=== PATIENT | male | born 1995 | race Hispanic/Latino ===

== ENCOUNTER 2018-02-25 10:26 | Emergency (ER) | payer SELFPAY ==
[2018-02-25 10:44] VITALS: BP 170/106; PULSE 90; RESP 15; TEMP 36.6; O2SAT 100
--- NOTE | 2018-02-25 10:50 | ED.WOUNDLAC ---
HPI - Wound/Laceration General Chief Complaint: Wound/Laceration Stated Complaint: Hand/Finger Lacerations Time Seen by Provider: 02/25/18 10:29 Source: patient Mode of arrival: ambulatory Limitations: no limitations History of Present Illness HPI narrative: 22-year-old male here for evaluation of cuts on his bilateral hands. Patient does not know his last tetanus shot. He states that he was on a ladder with a trimmer sawyer and fell off the ladder when he reached for the head tremor and cut his hands. States he did wash them out prior to arrival. Related Data Previous Rx's Medication Instructions Recorded cephalexin [Keflex] 500 mg PO BID 10 Days #20 cap 02/25/18 Allergies Allergy/AdvReac Type Severity Reaction Status Date / Time No Known Drug Allergies Allergy Verified 02/25/18 12:45 Review of Systems Constitutional Denies fever(s) Cardiovascular Denies chest pain and Denies dyspnea Respiratory Denies dyspnea Gastrointestinal Gastrointestinal: Denies abdominal pain, Denies nausea and Denies vomiting Musculoskeletal Comments: Cuts to both his hands otherwise no other musculoskeletal complaints Integumentary/Breasts Comments: Cuts to both of his hands Neurologic Comments: No numbness and tingling bilateral upper extremities Exam Initial Vital Signs Initial Vital Signs: Vital Signs Temperature 97.8 F 02/25/18 10:44 Pulse Rate 90 02/25/18 10:44 Respiratory Rate 15 02/25/18 10:44 Blood Pressure 170/106 H 02/25/18 10:44 Pulse Oximetry 100 02/25/18 10:44 Const General: cooperative, healthy appearing, comfortable, well developed, well groomed and No acute distress Orientation: alert, awake and oriented x3 HENMT Head: normal to inspection, normocephalic and atraumatic Cardio Pulses: radial pulses present bilaterally Skin Other: Patient with a 4 cm curvilinear laceration to the dorsum of his right hand in between the ring and little finger. No active bleeding. Patient with a 3 cm laceration to the dorsum of his left thumb in between the IP joint the MCP joint Neuro Other: Sensation intact to light touch bilateral upper extremities Extrem Other: Patient with lacerations of the hands as described in the skin section. Is able to flex and extend at all joints of bilateral hands without problems. Procedures Laceration Repair Laceration 1: Site: hand (Right) Side (If applicable): right Size (cm): 4 Description: flap and other (curved) Depth: simple, single layer Local Anesthetic: lidocaine 1% Amount of anesthesia used (mL): 5 Pre-repair: wound explored, irrigated extensively and deep structures intact Skin layer closed with: nylon Size (cm): 4-0 Number of sutures: 10 Technique: simple, interrupted Laceration 2: Site: hand Side (If applicable): left Size (cm): 3 Description: linear, flap and other (curved) Depth: simple, single layer Local Anesthetic: lidocaine 1% Amount of anesthesia used (mL): 5 Skin layer closed with: nylon Size (cm): 5-0 Number of sutures: 7 Technique: simple, interrupted Course Orders Ordered: Discontinued Medications Diphtheria/Tetanus/Acell Pertussis (Adacel) 0.5 ml IM .ONCE ONE Stop: 02/25/18 10:52 Last Admin: 02/25/18 11:16 Dose: 0.5 ml Vital Signs - 8 hr 02/25/18 10:44 02/25/18 11:21 Temperature 97.8 F Pulse Rate 90 79 Respiratory Rate 15 20 Blood Pressure 170/106 H Blood Pressure [Right Arm] 135/64 H Pulse Oximetry 100 100 MDM - Wound/Laceration MDM Narrative Medical decision making narrative: Patient's tetanus was updated. Wounds were closed as described above. Deep structures were involved on my exam today. Will send the patient home on antibiotics given the fact that this was on his hands and the fact that it was a trimmer sawyer. Patient was instructed on care. He was given follow-up instructions he was given return precautions. He expressed understanding and agreement with plan Discharge Plan Departure Patient Disposition: Home, Self-Care Clinical Impression: Laceration Instructions: DI for Laceration Repair, DI for Laceration Repair -- Finger Activity Restrictions/Additional Instructions: Recommend that you take all of your medications as instructed. The stitches do need to be removed in approximately 7-10 days. You can wash your hands like normal however do not soak your hands and anything until the wounds are healed. There will be scars despite our interventions today. Likely discussed there is a chance that the skin flaps may not survive this incident. Return to the emergency department for any new or worsening symptoms Prescriptions: New cephalexin [Keflex] 500 mg capsule 500 mg PO BID 10 Days Qty: 20 RF: 0
[2018-02-25] MEDS: TET,DIPH,PERTUSS(ACELL),VAC/PF 0.5 ML SYRINGE IM (11:16)
[2018-02-25 11:21] VITALS: BP 135/64; PULSE 79; RESP 20; O2SAT 100
[2018-02-25] MEDS: HYDROCODONE/ACET 5/325 TABLET 1 TAB PO (13:08)
[2018-02-25 13:25] VITALS: BP 141/91; PULSE 90; RESP 20; O2SAT 97
== END 2018-02-25 13:25 | disposition home or self-care (01) ==
PROVIDERS: Emergency Provider Emergency Medicine
DX: S61.411A Laceration without foreign body of right hand, initial encounter (principal); S61.412A Laceration without foreign body of left hand, initial encounter; W29.3XXA Contact with powered garden and outdoor hand tools and machinery, initial encounter
CPT/HCPCS: 12002; 90471; 99283; 90715